=== PATIENT | female | born 1940 | race Caucasian/White ===

== ENCOUNTER 2022-03-16 10:49 | Observation (INO) ==
[2022-03-16] MEDS ORDERED: Famotidine 20 MG/2 ML VIAL IVP ONE (11:15)
[2022-03-16 11:42] LABS: Basophils % 0.4 %; Eosinophils # 0.6 K/mcL (0.0-0.6); Eosinophils % 5.2 %; Hematocrit 38.9 % (35.3-44.9); Hemoglobin 12.1 g/dL (11.5-15.4); Immature Granulocytes % 0.6 % (0-4); Lymphocytes # 2.8 K/mcL (0.6-4.6); Lymphocytes % 26.2 %; Mean Corpuscular HGB Conc 31.1 g/dL (31.6-35.5); Mean Corpuscular Hemoglobin 28.7 pg (28.0-33.3); Mean Corpuscular Volume 92.2 fL (83.0-100.0); Mean Platelet Volume 10.8 fL (9.4-12.4); Monocytes # 0.6 K/mcL (0.0-1.3); Monocytes % 5.2 %; Neutrophils # 6.6 K/mcL (1.6-8.9); Platelet Count 191 K/mcL (140-400); Red Blood Count 4.22 M/mcL (3.82-4.97); Red Cell Distribution Width 14.3 % (11.5-14.5); Segmented Neutrophils % 62.4 %; White Blood Count 10.6 K/mcL (4.3-11.1)
[2022-03-16 12:05] LABS: Calcium 9.3 mg/dL (8.6-10.3); Potassium 6.3 mEq/L (3.5-5.1)
[2022-03-16] MEDS ORDERED: Ondansetron 4 MG/2 ML VIAL IVP PRN (14:26)
[2022-03-16] MEDS ORDERED: *HR* HYDROcodone/Acet 5/325 mg TABLET PO PRN (14:26)
[2022-03-16] MEDS ORDERED: Naloxone 0.4 MG/ML INJ IVP PRN (14:26)
[2022-03-16] MEDS ORDERED: *HR* Dextrose 50 % in Water (Syg) 50 ML SYRINGE IVP PRN (14:28)
[2022-03-16] MEDS ORDERED: D5% in Water 1,000 ML IVC PRN (14:28)
[2022-03-16] MEDS ORDERED: Dextrose Gel 15 GM/37.5 ML TUBE PO PRN ×2 (14:28)
[2022-03-16] MEDS ORDERED: 0.9 % Sodium Chloride 500 ML IVC SCH (15:00)
[2022-03-16] MEDS: Albuterol 2.5 MG/3 ML NEBULIZER IH SCH ×2 (17:25→23:03)
[2022-03-16] MEDS: Insulin LISPRO 300 UNITS/3 ML VIAL SUBQ SCH (17:58)
[2022-03-16] MEDS: MethylPREDNISolone 40 MG/ML VIAL IVP SCH (18:13)
[2022-03-16] MEDS: SODIUM ZIRCONIUM CYCLOSILICATE 5 GM POWD.PACK PO SCH (18:13)
[2022-03-17 03:42] VITALS: BP 128/55; PULSE 64; TEMP 97.8
[2022-03-17] MEDS: Albuterol 2.5 MG/3 ML NEBULIZER IH SCH (03:59)
[2022-03-17 04:01] VITALS: O2SAT 95
[2022-03-17 05:44] LABS: Basophils % 0.1 %; Hematocrit 36.6 % (35.3-44.9); Hemoglobin 11.4 g/dL (11.5-15.4); Immature Granulocytes % 0.7 % (0-4); Lymphocytes # 0.8 K/mcL (0.6-4.6); Lymphocytes % 8.2 %; Mean Corpuscular HGB Conc 31.1 g/dL (31.6-35.5); Mean Corpuscular Hemoglobin 28.6 pg (28.0-33.3); Mean Platelet Volume 11.5 fL (9.4-12.4); Monocytes # 0.2 K/mcL (0.0-1.3); Monocytes % 1.6 %; Neutrophils # 8.3 K/mcL (1.6-8.9); Platelet Count 185 K/mcL (140-400); Red Blood Count 3.98 M/mcL (3.82-4.97); Red Cell Distribution Width 14.2 % (11.5-14.5); Segmented Neutrophils % 89.4 %; White Blood Count 9.2 K/mcL (4.3-11.1)
[2022-03-17 06:14] LABS: Calcium 9.3 mg/dL (8.6-10.3); Magnesium 1.8 mg/dL (1.6-2.6); Phosphorous 2.8 mg/dL (2.7-4.5); Potassium 5.6 mEq/L (3.5-5.1)
[2022-03-17] MEDS: MethylPREDNISolone 40 MG/ML VIAL IVP SCH (06:23)
[2022-03-17] MEDS: SODIUM ZIRCONIUM CYCLOSILICATE 5 GM POWD.PACK PO SCH (07:52)
[2022-03-17] MEDS: Insulin LISPRO 300 UNITS/3 ML VIAL SUBQ SCH (07:53)
[2022-03-17] MEDS ORDERED: NON-FORMULARY MEDICATION 1 EACH EACH (Pravastatin Sodium 10 MG Tablet) PO SCH (09:00)
[2022-03-17] MEDS ORDERED: Aspirin 81 MG TAB.CHEW PO SCH (09:00)
== END 2022-03-17 10:09 | disposition home or self-care (01) ==
LOC: 3BNU 10:49 → EMEROOARM 10:49 → 3BNU 17:25
PROVIDERS: ADMIT Internal Medicine; ATTEND Internal Medicine